=== PATIENT | male | born 1945 | race Caucasian/White ===

== ENCOUNTER → 2017-09-15 | Outpatient (CLI) | payer MEDICARE ==
[~2017-09-15] MED LIST: ALLOPURINOL 30300 M2 PO; AMARYL4 MG PO; BAYER CHEWABLE81 MG PO; CENTRUM SILVER1 EAC4 PO; CINNAMON BARK1 GM MC; CLARITIN10 MG PO; CLONIDINE HCL0.3 M3 PO; CLONIDINE0.1 PO; DEMADEX20 MG PO; ELIQUIS5 MG PO; EPLERENONE50 MG PO; FLECAINIDE ACE100 MG PO; HYDROCODON-ACE1 EAC7 PO; HYTRIN 5 M5 MG/1 CAP PO; ISOSORBIDE MONO10 MG PO; ISOSORBIDE MONO20 MG PO; LANTUS100 UNIT/M SUBQ; LEVOTHYROXIN0.075 MG PO; LOTENSIN40 MG PO; MINOXIDIL2.5 MG PO; MULTI VITAMIN1 EACH PO; POTASSIUM20 PO; TOPROL XL100 MG PO; TORSEMIDE20 MG PO; VICTOZA0.6 MG/0.1 SUBQ; ZAROXOLYN 5MG TA5 M1 PO; ZAROXOLYN 5MG TA5 MG PO
== END ==
LOC: M.RAD 11:30
DX: K57.30 Diverticulosis of large intestine without perforation or abscess without bleeding (principal); R91.8 Other nonspecific abnormal finding of lung field; K80.80 Other cholelithiasis without obstruction; N26.1 Atrophy of kidney (terminal); E27.8 Other specified disorders of adrenal gland; M47.896 Other spondylosis, lumbar region; R10.2 Pelvic and perineal pain; I13.0 Hypertensive heart and chronic kidney disease with heart failure and stage 1 through stage 4 chronic kidney disease, or unspecified chronic kidney disease; E11.22 Type 2 diabetes mellitus with diabetic chronic kidney disease; N18.3 Chronic kidney disease, stage 3 (moderate); I50.9 Heart failure, unspecified; I48.91 Unspecified atrial fibrillation; E66.01 Morbid (severe) obesity due to excess calories; E03.9 Hypothyroidism, unspecified; Z79.4 Long term (current) use of insulin; Z90.5 Acquired absence of kidney; Z85.528 Personal history of other malignant neoplasm of kidney; Z85.118 Personal history of other malignant neoplasm of bronchus and lung

== ENCOUNTER 2018-03-27 13:00 | Emergency (ER) | payer MEDICARE ==
[~2018-03-27] VITALS: Ht 170.2 cm; Wt 122.5 kg
[~2018-03-27 13:00] MED LIST changes: -HYDROCODON-ACE1 EAC7 PO; -TORSEMIDE20 MG PO
[2018-03-27] MEDS ORDERED: TORSEMIDE20 MG PO (13:11)
[2018-03-27] MEDS ORDERED: HYDROCODON-ACE1 EAC7 PO (14:09)
[2018-03-27 14:25] VITALS: BP 166/70
== END 2018-03-27 14:26 | disposition home or self-care (01) ==
LOC: M.ERS 13:00
DX: S22.32XA Fracture of one rib, left side, initial encounter for closed fracture (principal); I11.0 Hypertensive heart disease with heart failure; I50.9 Heart failure, unspecified; E11.9 Type 2 diabetes mellitus without complications; Z79.4 Long term (current) use of insulin; Z88.5 Allergy status to narcotic agent; W01.0XXA Fall on same level from slipping, tripping and stumbling without subsequent striking against object, initial encounter; Y93.89 Activity, other specified; Y92.89 Other specified places as the place of occurrence of the external cause; Y99.8 Other external cause status

== ENCOUNTER → 2019-03-12 | Outpatient (CLI) | payer MEDICARE ==
[~2019-03-12] MED LIST changes: +HYDROCODON-ACE1 EAC7 PO; +TORSEMIDE20 MG PO
== END ==
LOC: M.MRI 14:04
DX: S83.241A Other tear of medial meniscus, current injury, right knee, initial encounter (principal); M17.11 Unilateral primary osteoarthritis, right knee; M65.861 Other synovitis and tenosynovitis, right lower leg; D17.23 Benign lipomatous neoplasm of skin and subcutaneous tissue of right leg; X58.XXXA Exposure to other specified factors, initial encounter; Y93.89 Activity, other specified; Y92.89 Other specified places as the place of occurrence of the external cause; Y99.8 Other external cause status

== ENCOUNTER 2021-01-02 08:33 | Observation (INO) | payer OTHER ==
[~2021-01-02] VITALS: Ht 170.2 cm; Wt 120.2 kg
[2021-01-02] VITALS (14 sets, daily range): BP systolic 111–170; BP diastolic 67–90
[~2021-01-02 08:33] MED LIST changes: +ACCU-CHEK1 EAC1 SUBQ; +BENAZEPRIL HCL5 MG PO; +ELIQUIS2.5 MG PO; +EMU-LAC HYDRAT120 ML TOP; +FREESTYLE LANC1 EACH MISCELL; +HUMALOG KW200 UNIT/1 SUBQ; +INSULIN PEN NE1 EAC1 SUBQ; +SPIRONOLACTONE25 MG PO; +TERAZOSIN HCL10 MG PO; +TOPROL XL25 MG PO; +TRULICITY1.5 MG/0.5 SUBQ
[2021-01-02 09:53] LABS: HEMATOCRIT 39.7 % (42.0-52.0); HEMOGLOBIN 13.3 gm/dL (14.0-18.0); MCH 30.4 pg (26.0-34.0); MCHC 33.6 g/dL (28.0-37.0); MCV 90.5 fL (80.0-100.0); RBC 4.38 mil/uL (4.50-6.00); RDW-CV 14.9 % (10.5-14.5); WBC 8.4 thou/uL (4.0-11.0)
[2021-01-02 10:04] LABS: ANION GAP 9 mmol/L (7-16); BUN 59 mg/dL (7-18); CALCIUM 8.8 mg/dL (8.5-10.1); CHLORIDE 103 mmol/L (98-107); CO2 27 mmol/L (21-32); CREATININE 2.6 mg/dL (0.6-1.3); GLUCOSE 152 mg/dL (70-99); POTASSIUM 3.6 mmol/L (3.5-5.1); SODIUM 139 mmol/L (136-145)
[2021-01-02 10:08] LABS: ALBUMIN 3.2 g/dL (3.4-5.0); ALKALINE PHOSPHATASE 73 U/L (46-116); CHOLESTEROL 160 mg/dL (<200); HDL CHOLESTEROL 47 mg/dL (>40); LDL CHOLESTEROL 99 mg/dL (<100); SGOT 15 U/L (15-37); SGPT 11 U/L (30-65); TC:HDL 3.4 Ratio (Not establshd); TOTAL BILIRUBIN 0.3 mg/dL (<0.1-1.0); TOTAL PROTEIN 6.9 g/dL (6.4-8.2); TRIGLYCERIDE 70 mg/dL (<150); VLDL 14 mg/dL (<40)
[2021-01-02 10:09] LABS: SERUM ASSESSMENT Clear
[2021-01-02 10:20] LABS: APTT 28.1 Seconds (25.0-31.3); PROTIME 10.3 Seconds (9.20-11.50)
--- NOTE | 2021-01-02 14:09 | EKG ---
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1945 Requested By: Manuel Weaver Order Number: [id number] Geraldine MD: Arben Irby Measurements Intervals [place] Rate: 57 P: 0 CA: 55 QRS: -63 QRSD: 170 T: 97 QT: 488 QTc: 476 Interpretive Statements Probable sinus rhythm with first-degree AV block Left bundle branch block Compared to ECG 02/04/2015 17:30:55 Left bundle-branch block now present Atrial premature complex(es) no longer present Electronically Signed On 01-02-2021 14:09:38 CDT by Arben Irby [email or web address] <ELECTRONICALLY SIGNED> By: Arben Irby MD, [facility] 01/02/21 1409 0932 0932 Arben Irby MD, [facility] /EPI
--- NOTE | 2021-01-02 15:53 | EKG ---
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1945 Requested By: Manuel Weaver Order Number: [id number] Geraldine MD: Arben Irby Measurements Intervals [place] Rate: 59 P: -59 DE: 327 QRS: -69 QRSD: 166 T: 79 QT: 480 QTc: 476 Interpretive Statements Sinus rhythm Prolonged [place] interval Left bundle branch block Compared to ECG 01/02/2021 09:32:50 No significant interval change Electronically Signed On 01-02-2021 15:53:38 CDT by Arben Irby [email or web address] <ELECTRONICALLY SIGNED> By: Arben Irby MD, [facility] 01/02/21 1553 1426 1426 Arben Irby MD, [facility] /EPI
[2021-01-03] VITALS (7 sets, daily range): BP systolic 115–167; BP diastolic 48–76
[2021-01-03 06:21] LABS: HEMATOCRIT 36.6 % (42.0-52.0); HEMOGLOBIN 12.3 gm/dL (14.0-18.0); MCH 30.8 pg (26.0-34.0); MCHC 33.8 g/dL (28.0-37.0); MCV 91.1 fL (80.0-100.0); MPV 8.9 fl. (7.2-11.1); RBC 4.01 mil/uL (4.50-6.00); WBC 6.8 thou/uL (4.0-11.0)
[2021-01-03 06:29] LABS: ALBUMIN 2.8 g/dL (3.4-5.0); CALCIUM 8.3 mg/dL (8.5-10.1); CREATININE 2.2 mg/dL (0.6-1.3); TOTAL BILIRUBIN 0.4 mg/dL (<0.1-1.0)
[2021-01-03 06:39] LABS: POTASSIUM 2.9 mmol/L (3.5-5.1)
[2021-01-03] MEDS ORDERED: BAYER CHEWABLE81 MG PO (09:07)
[2021-01-03] MEDS ORDERED: EFFIENT10 MG PO (09:07)
--- NOTE | 2021-01-03 14:15 | EKG ---
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1945 Requested By: Manuel Weaver Order Number: [id number] Geraldine MD: Arben Irby Measurements Intervals [place] Rate: 62 P: -49 NE: 271 QRS: -52 QRSD: 161 T: 111 QT: 454 QTc: 461 Interpretive Statements Sinus rhythm Prolonged [place] interval Left bundle branch block Compared to ECG 01/02/2021 14:26:59 No significant interval change Electronically Signed On 01-03-2021 14:15:44 CDT by Arben Irby [email or web address] <ELECTRONICALLY SIGNED> By: Arben Irby MD, [facility] 01/03/21 1415 0807 0807 Arben Irby MD, [facility] /EPI
--- NOTE | 2021-01-03 15:45 | CARD ---
[address] [address] CARDIAC CATH REPORT Name: PEREZ HARRIS Room: [address] M.R.#: [id number] Admission: 01/02/21 Attend Phys: Manuel Weaver MD Discharge: Date of : 41 Report #: [id number] THIS REPORT FOR: cc: Vik Alvarez MD, Meng MD Holkins, John M. MD [facility] ~ APPROVED REPORT Study performed: 01/02/2021 10:03:37 Patient Details Patient Status: Out-Patient Room #: The patient is a 75 year-old male Event Personnel Manuel Weaver Strawhat Blocking Operator, Guillaume Weaver RTR Scrub, April Dalton RTR Monitor, Paola Daniels RN RN, Arben Irby Manager Cardiac Procedures Performed Art Access - R radial artery Art Access - R femoral artery Left Heart Cath w/or w/o Coronaries CECY Place w/wo Plasty Single PDA Hemostasis w/ Angioseal Indication Unstable angina Risk Factors Hypercholesterolemia, Hypertension Admission/Lab Medications/Medications given during procedure Lidocaine Subcut 8 ml, Nitroglycerin IA 400 mcg, Verapamil IA 5 mg, Oxygen Nasal cannula 2 l per min, 0.9% Sodium Chloride IV 75 ml per hr, Lidocaine Subcut 10 ml, Angiomax IV 18 ml, Angiomax Drip IV 24.04 ml per hr, Aspirin PO 324 mg, Effient PO 60 mg Procedure Narrative The patient was brought electively to the Cardiac Catheterization Laboratory and was prepped and draped in a sterile manner. The right femoral was infiltrated with 2% Lidocaine subcutaneous anesthesia. IV conscious sedation was used throughout procedure with appropriate monitoring and was performed in the presence of a registered nurse who was an independent trained [place] [address] CARDIAC CATH REPORT Name: PEREZ HARRIS Room: [address]#: [id number] Admission: 01/02/21 Attend Phys: Manuel Weaver MD Discharge: Date of : 41 Report #: [id number] performing the procedure. A [place] 6 FR sheath was inserted into the right femoral artery. Coronary angiography was performed using coronary diagnostic catheters. The right coronary system was accessed and visualized with a Diagnostic 6 Fr JR 4 catheter. The left coronary system was accessed and visualized with a Diagnostic 6 Fr JL 5 catheter. The left ventricle was accessed and visualized with a Diagnostic 6 Fr Pigtail catheter. Left ventricular/Aortic Valve gradient assessed via catheter pullback. Pre-demployment femoral angiogram was performed . Closure device was deployed with a Fr Angioseal STS 6Fr. The patient tolerated the procedure well and there were no complications associated with the procedure. There was no hematoma. A slender glide sheath was inserted into the right radial artery. The artery was too torturous for the catheters to go through. Therefore, we went through the right femoral artery. Intraoperative Conscious Sedation Sedation start time: 1033 Case end Time: 1119 Fentanyl 25 mcg Versed 1 mg Fluoro Time: 15.2 minutes Dose: DAP 063055 cGycm2 3037 mGy Contrast Type and Amount: Visipaque 240 ml Diagnostic Cath Left Main 0% narrowing LAD 40% mid vessel narrowing Circumflex 30% proximal circumflex narrowing with 30% proximal first marginal branch narrowing Right Coronary 40% proximal narrowing with 75% focal proximal posterior descending branch stenosis and 50% tubular posterior lateral branch narrowing Left Ventriculography Left Ventriculography was not performed. Hemodynamics The aortic pressure is 136/64 mmHg with a mean of 50 mmHg. The left ventricular pressure is 137/15 mmHg with a mean of mmHg. The left ventricular end diastolic pressure is 18 mmHg. PCI Technique Lesion Anticoagulation was achieved with Angiomax Drip. Patient was preloaded with Angiomax IV 18 ml. Percutaneous coronary intervention was performed on the right posterior [place] [address] CARDIAC CATH REPORT Name: PEREZ HARRIS Room: [address] M.R.#: [id number] Admission: 01/02/21 Attend Phys: Manuel Weaver MD Discharge: Date of : 41 Report #: [id number] stenosis prior to intervention was 75% with ALLYSSA 3 flow. A 6F JR 4.0 Guide Catheter was used to engage the right ostium. A IG: ProwaterFlex 180CM Interventional Guidewire was used to cross the lesion. BALLOON DILATION A Balloon catheter Mini Trek RX 2.0 X 8 was inserted and inflated up to 10.00atm for 11seconds. Additional Inflation: 18.00atm for 8seconds. STENT DEPLOYMENT A drug-eluting stent [place] RX Stent 2.25X8mm was inserted and inflated up to 14.00atm for 21seconds. Additional Inflation: 15.00atm for 7seconds. Final angiography reveals 0 % stenosis with ALLYSSA 3 flow. Conclusion 1. Significant coronary artery disease characterized by the following: A 40% mid LAD narrowing B 30% proximal circumflex stenosis with 30% proximal first marginal branch narrowing C dominant right coronary artery with 40% proximal narrowing and 75% proximal posterior descending branch stenosis 2. Mild elevation of left ventricular end-diastolic pressure at rest 3. Successful PCI with deployment of a drug-eluting stent at the site of 75% posterior descending branch stenosis with 0% residual narrowing and ALLYSSA-3 flow to the distal vessel Recommendations Cardiac Risk Reduction Program Aggressive Medical Therapy Medications Administered Aspirin (any) [place] [address] CARDIAC CATH REPORT Name: PEREZ HARRIS Room: [address] Julian Rodriguez#: [id number] Admission: 01/02/21 Attend Phys: Manuel Weaver MD Discharge: Date of : 41 Report #: [id number] Diagnostic Cath Approved by: Manuel Weaver MD Date/Time: 01/03/2021 15:44:22 <ELECTRONICALLY SIGNED> By: Arben Irby MD, [facility] 01/03/21 1544 1544 1544Jomarlon Irby MD, [facility] /INF
--- NOTE | 2021-01-04 08:37 | D ---
[address] [address] DISCHARGE SUMMARY Name: PEREZ HARRIS Room: [address] Julian Rodriguez#: [id number] Admission: 01/02/21 Attend Phys: Manuel Weaver MD Discharge: 01/03/21 Date of : 41 Report #: [id number] THIS REPORT FOR: cc: Vik Alvarez MD, Meng MD Liston, Michael J. MD [facility] ~ DOC #: [id number] cc: MD Manuel Mayen MD DISCHARGE DIAGNOSES: 1. Unstable angina. 2. Coronary artery disease. 3. Paroxysmal atrial fibrillation. 4. Chronic anticoagulation. 5. Chronic renal insufficiency. PROCEDURES DURING HOSPITALIZATION: 1. Left heart catheterization. 2. Coronary angiography. 3. Percutaneous coronary intervention with drug-eluting stent placement to the proximal PDA branch of the right coronary artery. HOSPITAL COURSE: The patient was brought into the hospital after a cardiac stress test showed evidence of ischemia. His presenting complaint was dyspnea on exertion, felt to be a possible anginal equivalent. On angiography, he was found to have an 80% stenosis and a large PDA branch of the right coronary artery. He had otherwise mild plaquing throughout his other coronary arteries. He had a percutaneous coronary intervention with a drug-eluting stent placed to the proximal PDA without complication. The patient was otherwise stable throughout hospital stay. His creatinine on admission was 2.5 and on discharge 2.2. DISPOSITION: The patient is to follow up with nurse practitioner in 3 weeks. DISCHARGE MEDICATIONS: Eliquis 2.5 mg b.i.d., flecainide 100 mg b.i.d., Nitrostat sublingual p.r.n., terazosin 10 mg at bedtime, metoprolol succinate 75 mg daily, benazepril 5 mg every other day, spironolactone 25 mg daily, potassium chloride 40 mEq daily and 20 mEq at bedtime, torsemide 20 mg p.o. b.i.d., metolazone 5 mg 3 times weekly, Trulicity 1.5 mg subQ q. 7 days, Lantus 12 units subQ at bedtime, Humalog insulin 20 units subQ a.c., Levothyroxine 0.075 mg daily, ____ hydrating eyedrops p.r.n., multivitamin one tablet daily, allopurinol 300 mg daily. [place] [address] DISCHARGE SUMMARY Name: PEREZ HARRIS [address]: [address]#: [id number] Admission: 01/02/21 Attend Phys: Manuel Weaver MD Discharge: 01/03/21 Date of : 41 Report #: [id number] MJL/ROSS <ELECTRONICALLY SIGNED> By: Manuel Weaver MD, FACC 01/04/21 0837 0814 0913Michael Fabio Weaver MD, FACC /nt
--- NOTE | 2021-01-07 13:59 | D ---
[facility] [address] [place] [address] DISCHARGE SUMMARY Name: PEREZ HARRIS Room: [address] Julian Rodriguez#: [id number] Admission: 01/02/21 Attend Phys: Manuel Weaver MD Discharge: 01/03/21 Date of : 41 Report #: [id number] THIS REPORT FOR: cc: Vik Alvarez MD, Meng MD Liston, Michael J. MD [facility] ~ DOC #: [id number] cc: Vik Weaver MD DISCHARGE DIAGNOSES: 1. Coronary artery disease, status post drug-eluting stent placement to the right posterior descending coronary artery. 2. Type 2 diabetes mellitus. 3. Chronic renal insufficiency. 4. Essential hypertension. 5. Acute on chronic diastolic heart failure. 6. Paroxysmal atrial fibrillation. 7. Ascending aortic root aneurysm. PROCEDURES DURING HOSPITALIZATION: 1. Left heart catheterization. 2. Percutaneous coronary intervention to the distal right PDA. HOSPITAL COURSE: The patient was brought to the hospital for coronary angiography. On angiography, he was found to have 80% stenosis of a large right PDA. The remainder of his arteries had moderate nonocclusive stenosis noted. Left ventricular end diastolic pressure was elevated on left heart catheterization at 20 mmHg. The patient tolerated the procedure well without complication after drug-eluting stent placement to the large PDA. The patient had a 2.25 x 8 mm [place] stent placed. The patient was discharged uneventfully. DISCHARGE MEDICATIONS: Allopurinol 300 mg daily, AmLactin cream applied topically as directed, Lotensin 5 mg every other day, Trulicity 1.5 mg under the skin q. 7 days, Eliquis 2.5 mg b.i.d., flecainide 100 mg p.o. b.i.d., Humalog 20 units under the skin 3 times daily, Lantus 12 units under the skin as directed, levothyroxine 75 mcg daily, metolazone 5 mg 3 times weekly, metoprolol succinate 25 mg 3 tablets by mouth daily, multivitamin one tablet daily, potassium chloride 20 mEq 2 tablets daily and one tablet in p.m., spironolactone 25 mg daily, Hytrin 10 mg nightly, torsemide 20 mg b.i.d. and Effient 10 mg daily and aspirin 81 mg daily for one week. DISPOSITION: The patient is to follow up with nurse practitioner in 1 [place] [address] DISCHARGE SUMMARY Name: PEREZ HARRIS Room: [address] Julian Rodriguez#: [id number] Admission: 01/02/21 Attend Phys: Manuel Weaver MD Discharge: 01/03/21 Date of : 41 Report #: [id number] Manuel Weaver MD MJL/ADRIAN <ELECTRONICALLY SIGNED> By: Manuel Weaver MD, FACC 01/07/21 1359 1248 1437Michael Fabio Weaver MD, FACC /nt
== END 2021-01-03 19:05 | disposition home or self-care (01) ==
LOC: M.CL 08:33 → M.TBA-CV 12:09 → M.2W 12:09
PROVIDERS: ADMIT Internal Medicine Cardiovascular Disease; ATTEND Internal Medicine Cardiovascular Disease
DX: I25.110 Atherosclerotic heart disease of native coronary artery with unstable angina pectoris (principal); I48.0 Paroxysmal atrial fibrillation; N18.9 Chronic kidney disease, unspecified; Z79.01 Long term (current) use of anticoagulants; Z88.5 Allergy status to narcotic agent

== ENCOUNTER → 2021-03-27 | Outpatient (CLI) | payer OTHER ==
[2021-03-27] VITALS (9 sets, daily range): BP systolic 106–154; BP diastolic 62–92
[~2021-03-27] MED LIST changes: +EFFIENT10 MG PO
[2021-03-27 13:06] LABS: HEMATOCRIT 37.3 % (42.0-52.0); MCH 29.4 pg (26.0-34.0); MCHC 32.1 g/dL (28.0-37.0); MCV 91.3 fL (80.0-100.0); MPV 9.9 fl. (7.2-11.1); RBC 4.08 mil/uL (4.50-6.00); RDW-CV 14.3 % (10.5-14.5); WBC 5.7 thou/uL (4.0-11.0)
[2021-03-27 13:15] LABS: CREATININE 2.7 mg/dL (0.6-1.3); POTASSIUM 4.6 mmol/L (3.5-5.1)
[2021-03-27 13:20] LABS: ALBUMIN 3.3 g/dL (3.4-5.0); TOTAL BILIRUBIN 0.4 mg/dL (<0.1-1.0); TOTAL PROTEIN 6.6 g/dL (6.4-8.2)
--- NOTE | 2021-03-27 14:25 | EKG ---
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 : 1945 Requested By: George Hodges Order Number: [id number] Geraldine MD: George Hodges Measurements Intervals [place] Rate: 57 P: NV: QRS: -48 QRSD: 190 T: 91 QT: 530 QTc: 516 Interpretive Statements Atrial fibrillation left axis aberrant conduction Left bundle branch block Compared to ECG 01/03/2021 08:07:45 Sinus rhythm no longer present Electronically Signed On 03-27-2021 14:24:57 CDT by George Hodges [email or web address] <ELECTRONICALLY SIGNED> By: George Hodges MD, [facility] 03/27/21 1424 1245 1245 George Hodges MD, [facility] /EPI
--- NOTE | 2021-03-27 14:26 | EKG ---
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: : 1945 Requested By: Manuel Weaver Order Number: [id number] Geraldine MD: George Hodges Measurements Intervals [place] Rate: 55 P: [place]: QRS: -53 QRSD: 190 T: 64 QT: 517 QTc: 495 Interpretive Statements Atrial fibrillation left axis Multiple aberrant complexes Left bundle branch block Compared to ECG 03/27/2021 12:45:10 no change Electronically Signed On 03-27-2021 14:26:18 CDT by George Hodges [email or web address] <ELECTRONICALLY SIGNED> By: George Hodges MD, [facility] 03/27/21 1426 1333 1333 George Hodges MD, [facility] /EPI
--- NOTE | 2021-03-29 17:11 | CARD ---
[address] [address] CARDIAC CATH REPORT Name: PEREZ HARRIS Room: [facility] DoloresZeyad#: [id number] Admission: 03/27/21 Attend Phys: Manuel Weaver MD Discharge: Date of : 41 Report #: [id number] THIS REPORT FOR: cc: Vik Alvarez MD, Meng MD Liston, Michael J. MD [facility] ~ cc: Vik Alvarez MD DATE OF SERVICE: 03/27/2021 PROCEDURE: DC cardioversion. INDICATION: Persistent atrial fibrillation. DESCRIPTION OF PROCEDURE: After informed consent was obtained, the patient was brought to the cardiac holding area. The patient was given 3 mg of intravenous Versed and 75 mg of intravenous fentanyl for conscious sedation. Once the patient was adequately sedated, cardioversion was attempted with a biphasic shock of 300 joules. The patient failed to convert to sinus rhythm. A second cardioversion was attempted with a single biphasic shock of 360 joules. The patient failed to convert. A third cardioversion was attempted with a single biphasic shock of 360 joules. The patient failed to convert and remained in atrial fibrillation. There were no complications with the procedure. IMPRESSION: 1. Persistent atrial fibrillation. 2. Unsuccessful attempt at cardioversion after three attempts. The patient remains in atrial fibrillation. <ELECTRONICALLY SIGNED> By: Manuel Weaver MD, FACC 03/29/21 [address] [place], [place] [address]tevin Weaver MD, [facility]EN[facility] /nt
== END | disposition home or self-care (01) ==
LOC: M.CL 12:11
PROVIDERS: ATTEND Internal Medicine Cardiovascular Disease
DX: I48.19 Other persistent atrial fibrillation (principal); Z98.890 Other specified postprocedural states; Z79.899 Other long term (current) drug therapy; Z79.01 Long term (current) use of anticoagulants; Z88.8 Allergy status to other drugs, medicaments and biological substances

== ENCOUNTER → 2021-03-29 | Outpatient (CLI) | payer OTHER ==
[2021-03-29 12:28] LABS: ALBUMIN 3.4 g/dL (3.4-5.0); DIRECT BILIRUBIN 0.2 mg/dL (<0.1-0.3); TOTAL BILIRUBIN 0.4 mg/dL (<0.1-1.0); TOTAL PROTEIN 6.8 g/dL (6.4-8.2)
== END ==
LOC: M.RAD 11:37
PROVIDERS: ATTEND Internal Medicine Cardiovascular Disease
DX: J84.10 Pulmonary fibrosis, unspecified (principal); I51.7 Cardiomegaly; I77.810 Thoracic aortic ectasia; I48.91 Unspecified atrial fibrillation; I50.32 Chronic diastolic (congestive) heart failure; Z79.899 Other long term (current) drug therapy

== ENCOUNTER → 2021-04-03 | Outpatient (CLI) | payer OTHER | LOC: M.RAD 12:04 | PROVIDERS: ATTEND Internal Medicine | DX: M51.36 Other intervertebral disc degeneration, lumbar region (principal); M85.88 Other specified disorders of bone density and structure, other site; R29.898 Other symptoms and signs involving the musculoskeletal system; I70.0 Atherosclerosis of aorta; Z90.49 Acquired absence of other specified parts of digestive tract ==

== ENCOUNTER → 2021-04-19 | Outpatient (CLI) | payer OTHER ==
[2021-04-19 10:06] VITALS: BP 127/62
[2021-04-19 10:12] LABS: HEMATOCRIT 37.3 % (42.0-52.0); HEMOGLOBIN 12.5 gm/dL (14.0-18.0); MCH 30.3 pg (26.0-34.0); MCHC 33.5 g/dL (28.0-37.0); MCV 90.4 fL (80.0-100.0); MPV 8.9 fl. (7.2-11.1); RBC 4.12 mil/uL (4.50-6.00); RDW-CV 14.6 % (10.5-14.5); WBC 5.7 thou/uL (4.0-11.0)
[2021-04-19 10:31] LABS: CALCIUM 8.9 mg/dL (8.5-10.1); POTASSIUM 3.9 mmol/L (3.5-5.1)
[2021-04-19 10:35] LABS: ALBUMIN 3.4 g/dL (3.4-5.0); TOTAL BILIRUBIN 0.4 mg/dL (<0.1-1.0); TOTAL PROTEIN 6.8 g/dL (6.4-8.2)
--- NOTE | 2021-04-19 12:40 | EKG ---
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 : 1945 Requested By: Manuel Weaver Order Number: [id number] Geraldine MD: Arben Irby Measurements Intervals [place] Rate: 61 P: -43 [place]: 217 QRS: -52 QRSD: 147 T: 95 QT: 466 QTc: 470 Interpretive Statements Sinus rhythm Borderline prolonged [place] interval Left bundle branch block Baseline wander in lead(s) V6 Compared to ECG 03/27/2021 13:33:00 Atrial fibrillation no longer present Electronically Signed On 04-19-2021 12:40:01 CDT by Arben Irby [email or web address] <ELECTRONICALLY SIGNED> By: Arben Irby MD, [facility] 04/19/21 1240 0943 0943 Arben Irby MD, [facility] /EPI
== END | disposition home or self-care (01) ==
LOC: M.CL 09:09
PROVIDERS: ATTEND Internal Medicine Cardiovascular Disease
DX: I48.91 Unspecified atrial fibrillation (principal); Z53.8 Procedure and treatment not carried out for other reasons; Z79.899 Other long term (current) drug therapy; Z88.8 Allergy status to other drugs, medicaments and biological substances; Z79.01 Long term (current) use of anticoagulants

== ENCOUNTER → 2021-04-20 | Outpatient (CLI) | payer OTHER | LOC: M.CT 07:39 | PROVIDERS: ATTEND Internal Medicine Cardiovascular Disease | DX: I31.3 Pericardial effusion (noninflammatory) (principal); J98.4 Other disorders of lung; I50.32 Chronic diastolic (congestive) heart failure; I48.91 Unspecified atrial fibrillation; R93.89 Abnormal findings on diagnostic imaging of other specified body structures; Z79.899 Other long term (current) drug therapy; Z85.118 Personal history of other malignant neoplasm of bronchus and lung ==